=== PATIENT | male | born 1945 | race Caucasian/White ===

== ENCOUNTER 2018-10-29 17:06 | Emergency (ER) | payer MEDICARE, OTHER ==
--- NOTE | 2018-10-29 18:05 | EDM.PDOC ---
<India Oliva - Last Filed: 10/29/18 18:39> ED HPI GENERAL MEDICAL PROBLEM - General Chief Complaint: Neuro Symptoms/Deficits Stated Complaint: SHAKINESS,WEAKNESS,NAUSEA Time Seen by Provider: 10/29/18 18:00 Source of Information: Reports: Patient, Family - History of Present Illness INITIAL COMMENTS - FREE TEXT/NARRATIVE: pt was out for a drive and when they stopped he went to the [place] and he became very shakey and felt like he was going to pass out. He was very shakey but he did not actually feel like he had a fever. pt had been fine earlier in the day. He did not vomit. He seemed somewhat foggy and did feel like he could pass out Onset: Today, Sudden Duration: Hour(s): Location: Reports: Generalized - Related Data Allergies Allergy/AdvReac Type Severity Reaction Status Date / Time No Known Allergies Allergy Verified 10/29/18 17:30 Home Meds: Home Meds HCTZ/Triamterene [Maxzide 25-37.5 MG] 1 tab PO DAILY 06/27/13 [History] Allopurinol [Zyloprim] 100 mg PO DAILY 10/29/18 [History] Gabapentin [Neurontin] 300 mg PO BEDTIME 10/29/18 [History] atorvaSTATin [Lipitor] 10 mg PO BEDTIME 10/29/18 [History] Past Medical History HEENT History: Reports: Impaired Vision Cardiovascular History: Reports: High Cholesterol, Hypertension Respiratory History: Reports: Sleep Apnea Other Respiratory History: cpap does not use Gastrointestinal History: Reports: None Musculoskeletal History: Reports: Gout - Infectious Disease History Infectious Disease History: Reports: Chicken Pox, Measles, Mumps, Other (See Below) Other Infectious Disease History: Polio - Past Surgical History Head Surgeries/Procedures: Reports: None HEENT Surgical History: Reports: None Cardiovascular Surgical History: Reports: None Respiratory Surgical History: Reports: None Musculoskeletal Surgical History: Reports: None Dermatological Surgical History: Reports: None Social & Family History - Tobacco Use Smoking Status *Q: Never Smoker Second Hand Smoke Exposure: No - Caffeine Use Caffeine Use: Reports: Coffee - Recreational Drug Use Recreational Drug Use: No ED ROS GENERAL - Review of Systems Review Of Systems: See Below Constitutional: Reports: Fever, Chills, Malaise, Weakness HEENT: Reports: No Symptoms Respiratory: Reports: No Symptoms Cardiovascular: Reports: No Symptoms Endocrine: Reports: No Symptoms GI/Abdominal: Reports: No Symptoms : Reports: No Symptoms Musculoskeletal: Reports: No Symptoms Skin: Reports: No Symptoms Neurological: Reports: Dizziness, Weakness, Other (pt seemed somewhat vague. ) Psychiatric: Reports: Anxiety ED EXAM, NEURO - Physical Exam Exam: See Below Text/Narrative:: pt arrived with shaking that came on suddenly. By the time he got here he was feeling better. His temp was 101 or greater. Exam Limited By: No Limitations General Appearance: Alert, Anxious, Moderate Distress, Other (pupils equal and reactive. ) Ears: Normal TMs Nose: Normal Inspection Throat/Mouth: Normal Inspection Head Exam: Atraumatic Neck: Normal Inspection Respiratory/Chest: No Respiratory Distress Cardiovascular: Regular Rate, Rhythm, Tachycardia GI/Abdominal: Soft, Non-Tender (Male) Exam: Deferred Rectal (Males) Exam: Deferred Neurological: Alert, Oriented x 3 Back Exam: Normal Inspection Extremities: Normal Inspection Psychiatric: Normal Affect Course - Vital Signs Last Recorded V/S: Last Vital Signs Temp 101.5 F H 10/29/18 17:39 Pulse 101 H 10/29/18 18:55 Resp 30 H 10/29/18 18:55 BP 118/60 10/29/18 18:55 Pulse Ox 95 10/29/18 18:55 - Orders/Labs/Meds Orders: Active Orders 24 hr Category Date Time Status EKG Documentation Completion [RC] ASDIRECTED Care 10/29/18 17:58 Active CULTURE BLOOD [BC] Urgent Lab 10/29/18 17:55 Received CULTURE BLOOD [BC] Urgent Lab 10/29/18 18:00 Received CULTURE STREP A CONFIRMATION [RM] Routine Lab 10/29/18 19:02 Results STREP SCRN A RAPID W CULT CONF [RM] Routine Lab 10/29/18 19:02 Results Blood Culture x2 Reflex Set [OM.PC] Urgent Oth 10/29/18 18:05 Ordered EKG 12 Lead [EK] Routine Ther 10/29/18 17:58 Ordered Labs: Laboratory Tests 10/29/18 10/29/18 10/29/18 Range/Units 17:55 17:55 17:55 WBC 11.6 H (4.5-11.0) K/uL RBC 4.60 (4.30-5.90) M/uL Hgb 14.3 (12.0-15.0) g/dL Hct 41.6 (40.0-54.0) % MCV 90 (80-98) fL MCH 31 (27-31) pg MCHC 34 (32-36) % Plt Count 232 (150-400) K/uL Neut % (Auto) 88 H (36-66) % Lymph % (Auto) 2 L (24-44) % Dixon % (Auto) 8 H (2-6) % Eos % (Auto) 1 L (2-4) % Baso % (Auto) 0 (0-1) % Sodium 140 (140-148) mmol/L Potassium 3.6 (3.6-5.2) mmol/L Chloride 103 (100-108) mmol/L Carbon Dioxide 27 (21-32) mmol/L Anion Gap 10.2 (5.0-14.0) mmol/L BUN 26 H (7-18) mg/dL Creatinine 2.0 H (0.8-1.3) mg/dL Est Cr Clr Drug Dosing TNP Estimated GFR (MDRD) 33 L (>60) Glucose 229 H (74-106) mg/dL Lactic Acid (0.4-2.0) mmol/L Calcium 8.6 (8.5-10.1) mg/dL Total Bilirubin 1.0 (0.2-1.0) mg/dL AST 27 (15-37) U/L ALT 29 (12-78) U/L Alkaline Phosphatase 50 (46-116) U/L Troponin I 0.021 (0.000-0.056) ng/mL Total Protein 6.9 (6.4-8.2) g/dL Albumin 3.5 (3.4-5.0) g/dL Globulin 3.4 (2.3-3.5) g/dL Albumin/Globulin Ratio 1.0 L (1.2-2.2) Urine Color (YELLOW) Urine Appearance (CLEAR) Urine pH (5.0-8.0) Ur Specific [place] (1.008-1.030) Urine Protein (NEGATIVE) mg/dL Urine Glucose (UA) (NEGATIVE) mg/dL Urine Ketones (NEGATIVE) mg/dL Urine Occult Blood (NEGATIVE) Urine Nitrite (NEGATIVE) Urine Bilirubin (NEGATIVE) Urine Urobilinogen (0.2-1.0) EU/dL Ur Leukocyte Esterase (NEGATIVE) Urine RBC (0-5) Urine WBC (0-5) Ur Epithelial Cells Amorphous Sediment Urine Bacteria Urine Mucus 10/29/18 10/29/18 Range/Units 18:10 18:34 WBC (4.5-11.0) K/uL RBC (4.30-5.90) M/uL Hgb (12.0-15.0) g/dL Hct (40.0-54.0) % MCV (80-98) fL MCH (27-31) pg MCHC (32-36) % Plt Count (150-400) K/uL Neut % (Auto) (36-66) % Lymph % (Auto) (24-44) % Dixon % (Auto) (2-6) % Eos % (Auto) (2-4) % Baso % (Auto) (0-1) % Sodium (140-148) mmol/L Potassium (3.6-5.2) mmol/L Chloride (100-108) mmol/L Carbon Dioxide (21-32) mmol/L Anion Gap (5.0-14.0) mmol/L BUN (7-18) mg/dL Creatinine (0.8-1.3) mg/dL Est Cr Clr Drug Dosing Estimated GFR (MDRD) (>60) Glucose (74-106) mg/dL Lactic Acid 2.5 H (0.4-2.0) mmol/L Calcium (8.5-10.1) mg/dL Total Bilirubin (0.2-1.0) mg/dL AST (15-37) U/L ALT (12-78) U/L Alkaline Phosphatase (46-116) U/L Troponin I (0.000-0.056) ng/mL Total Protein (6.4-8.2) g/dL Albumin (3.4-5.0) g/dL Globulin (2.3-3.5) g/dL Albumin/Globulin Ratio (1.2-2.2) Urine Color Yellow (YELLOW) Urine Appearance Clear (CLEAR) Urine pH 6.0 (5.0-8.0) Ur Specific [place] 1.020 (1.008-1.030) Urine Protein Negative (NEGATIVE) mg/dL Urine Glucose (UA) 100 H (NEGATIVE) mg/dL Urine Ketones Negative (NEGATIVE) mg/dL Urine Occult Blood Negative (NEGATIVE) Urine Nitrite Negative (NEGATIVE) Urine Bilirubin Negative (NEGATIVE) Urine Urobilinogen 1.0 (0.2-1.0) EU/dL Ur Leukocyte Esterase Negative (NEGATIVE) Urine RBC 0-5 (0-5) Urine WBC 0-5 (0-5) Ur Epithelial Cells Rare Amorphous Sediment Not seen Urine Bacteria Not seen Urine Mucus Not seen Meds: Medications Discontinued Medications Generic Name Dose Route Start Last Admin Trade Name Ever PRN Reason Stop Dose Admin Acetaminophen 650 mg 10/29/18 18:06 10/29/18 18:19 Tylenol PO 10/29/18 18:07 650 mg ONETIME ONE Administration Sodium Chloride 1,000 mls @ 999 mls/hr 10/29/18 18:15 10/29/18 18:15 Normal Saline IV 999 mls/hr ASDIRECTED DANISHA Administration Sodium Chloride 1,000 mls @ 999 mls/hr 10/29/18 18:45 Normal Saline IV ASDIRECTED DANISHA Departure - Departure Disposition: Home, Self-Care 01 Clinical Impression: Viral syndrome Fever Qualifiers: Fever type: unspecified Qualified Code(s): R50.9 - Fever, unspecified - Discharge Information Instructions: Fever, Adult Referrals: Real Campuzano MD [Primary Care Provider] - Forms: ED Department Discharge Care Plan Goals: Rest, fluids, and increase activity as tolerated. Continue cold medications if needed, and return anytime if worsening such as difficulty breathing or serious weakness or other concerns. - My Orders Last 24 Hours: My Active Orders 10/29/18 19:02 CULTURE STREP A CONFIRMATION [RM] Routine STREP SCRN A RAPID W CULT CONF [RM] Routine - Assessment/Plan Last 24 Hours: My Active Orders 10/29/18 19:02 CULTURE STREP A CONFIRMATION [RM] Routine STREP SCRN A RAPID W CULT CONF [RM] Routine <Vincenzo Yates - Last Filed: 10/29/18 21:19> Course - Re-Assessments/Exams Free Text/Narrative Re-Assessment/Exam: 10/29/18 19:04 Patient care accepted from Dr. Oliva, labs so far generally reassuring. Urine is negative. He did admit he was developing a sore throat yesterday and a cold, took some throat lozenges. A rapid strep was obtained. 10/29/18 19:47 Rapid strep was negative, chest x-ray was normal. Patient felt stronger and was able to ambulate without difficulty. Temperature normalized. He is likely is in the early stages of a viral syndrome and will be discharged. He can return if worsening. We will also watch the results of the blood cultures and inform him immediately if a positive result is obtained. Departure - Departure Time of Disposition: 20:50
[2018-10-29] MEDS ORDERED: Acetaminophen Soln 650 MG/20.3 ML UD Cup PO ONE (18:06)
[2018-10-29] MEDS ORDERED: Sodium Chloride 0.9% 1,000 ML IV SCH ×2 (18:15→18:45)
--- NOTE | 2018-10-29 19:45 | CRLCR ---
INDICATION: Fever TECHNIQUE: Chest radiograph 2 views COMPARISON: None FINDINGS: Mediastinum: The mediastinum is normal in appearance. Mild cardiomegaly is present. Lung: Both lungs are unremarkable in appearance. No sign of pleural effusion seen. No pneumothorax is identified. Bone and Soft tissue: Unremarkable for age. IMPRESSION: 1. Mild cardiomegaly is present. Dictated by Mina Mata MD @ 10/29/2018 7:43:01 PM Dictated by: Mina Mata MD @ 10/29/2018 19:43:04 (Electronically Signed)
== END 2018-10-29 20:00 | disposition home or self-care (01) ==
LOC: JP.ED 17:06
DX: R50.9 Fever, unspecified (principal); B34.9 Viral infection, unspecified; I10 Essential (primary) hypertension; E78.00 Pure hypercholesterolemia, unspecified; M10.9 Gout, unspecified; Z79.899 Other long term (current) drug therapy
CPT/HCPCS: 36415; 71046; 80053; 81001; 83605; 84484; 85025; 87040; 87081; 87804; 87880; 93005; 96360; 99285; A9270; J7030; 99282

== ENCOUNTER 2018-11-20 11:32 | Emergency (ER) | payer MEDICARE ==
[2018-11-20] MEDS ORDERED: Ketorolac 30 MG/ML SDV IM ONE (11:55)
--- NOTE | 2018-11-20 11:57 | EDM.PDOC ---
ED HPI GENERAL MEDICAL PROBLEM - General Chief Complaint: Upper Extremity Injury/Pain Stated Complaint: POSSIBLE BROKEN R WRIST Time Seen by Provider: 11/20/18 11:53 Source of Information: Reports: Patient, Family, RN Notes Reviewed History Limitations: Reports: No Limitations - History of Present Illness INITIAL COMMENTS - FREE TEXT/NARRATIVE: 72-year-old gentleman presents emergency department today with pain in his right wrist he injured himself using a tool at home 3 days prior he's now had pain and swelling over the right wrist full range of motion of all his digits Right Wrist Pain Score (Numeric/FACES): 9 - Related Data Allergies Allergy/AdvReac Type Severity Reaction Status Date / Time No Known Allergies Allergy Verified 11/20/18 11:48 Home Meds: Home Meds HCTZ/Triamterene [Maxzide 25-37.5 MG] 1 tab PO DAILY 06/27/13 [History] Allopurinol [Zyloprim] 100 mg PO DAILY 10/29/18 [History] Gabapentin [Neurontin] 300 mg PO BEDTIME 10/29/18 [History] atorvaSTATin [Lipitor] 10 mg PO BEDTIME 10/29/18 [History] Past Medical History HEENT History: Reports: Impaired Vision Cardiovascular History: Reports: High Cholesterol, Hypertension Respiratory History: Reports: Sleep Apnea Other Respiratory History: cpap does not use Musculoskeletal History: Reports: Gout - Infectious Disease History Infectious Disease History: Reports: Chicken Pox, Measles, Mumps, Other (See Below) Other Infectious Disease History: Polio - Past Surgical History Head Surgeries/Procedures: Reports: None HEENT Surgical History: Reports: None Cardiovascular Surgical History: Reports: None Respiratory Surgical History: Reports: None Musculoskeletal Surgical History: Reports: None Dermatological Surgical History: Reports: None Social & Family History - Tobacco Use Smoking Status *Q: Never Smoker - Caffeine Use Caffeine Use: Reports: Coffee Review of Systems - Review of Systems Review Of Systems: See Below Constitutional: Reports: No Symptoms Musculoskeletal: Reports: Joint Pain (Right wrist pain) ED EXAM, GENERAL - Physical Exam Exam: See Below Free Text/Narrative:: Examination of the right wrist I do appreciate some edema slight amount of erythema over the dorsal aspect of the wrist he is tender with flexion and extension of the wrist radial pulses +2 full range of motion of all digits Course - Vital Signs Last Recorded V/S: Last Vital Signs Temp 96.5 F 11/20/18 11:51 Pulse 88 11/20/18 11:51 Resp 14 11/20/18 11:51 BP 133/81 11/20/18 11:51 Pulse Ox 94 L 11/20/18 11:51 - Orders/Labs/Meds Meds: Medications Discontinued Medications Generic Name Dose Route Start Last Admin Trade Name Ever PRN Reason Stop Dose Admin Ketorolac Tromethamine 30 mg 11/20/18 11:55 11/20/18 12:33 Toradol IM 11/20/18 11:56 30 mg ONETIME ONE Administration Departure - Departure Time of Disposition: 12:35 Disposition: Home, Self-Care 01 Condition: Fair Clinical Impression: Sprain of wrist, right Qualifiers: Encounter type: initial encounter Qualified Code(s): S63.501A - Unspecified sprain of right wrist, initial encounter - Discharge Information Instructions: Wrist Sprain, Adult Referrals: Real Campuzano MD [Primary Care Provider] - Forms: ED Department Discharge Additional Instructions: use NSAIDs for pain, Please followup with your primary care provider in 3-5 days if not better, please call return to the emergency department with worsening of symptoms. - Assessment/Plan Plan: Assessment Acuity = acute Site and laterality = right wrist strain Etiology = secondary to repetitive motion injury Manifestations = none Location of injury = Home Lab values = x-ray reveals no fracture only soft tissue swelling Plan He had some relief from Toradol injection provided in the ED, wrist splint was provided he will continue use anti-inflammatories as needed for pain follow-up primary care 3-5 days if not better This note was dictated using NextInput voice recognition software please call with any questions on syntax or grammar.
--- NOTE | 2018-11-20 12:28 | CRLCR ---
INDICATION: Pain, twisting injury COMPARISON: None. FINDINGS: Three views of the right wrist demonstrate normal alignment. No fracture or dislocation. Mild to moderate degenerative changes of the 1st CMC and triscaphe joints. 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 Mild diffuse soft tissue swelling. - IMPRESSION 1. No acute osseous abnormality. 2. Senescent changes, as above. Dictated by Torito Don MD @ 11/20/2018 12:26:16 PM Dictated by: Torito Don MD @ 11/20/2018 12:26:30 (Electronically Signed)
== END 2018-11-20 12:51 | disposition home or self-care (01) ==
LOC: JP.ED 11:32
DX: S63.501A Unspecified sprain of right wrist, initial encounter (principal); I10 Essential (primary) hypertension; E78.00 Pure hypercholesterolemia, unspecified; Z79.899 Other long term (current) drug therapy; X58.XXXA Exposure to other specified factors, initial encounter; Y93.89 Activity, other specified
CPT/HCPCS: 73110; 96372; 99283; J1885

== ENCOUNTER 2022-08-12 07:48 | Emergency (ER) | payer MEDICARE ==
[2022-08-12] MEDS ORDERED: Acetaminophen 500 MG Tab PO ONE (08:31)
[2022-08-12] MEDS ORDERED: Sodium Chloride 0.9% 10 ML Syringe FLUSH PRN (08:31)
[2022-08-12] MEDS ORDERED: Sodium Chloride 0.9% 500 ML IV ONE (08:38)
[2022-08-12 08:50] LABS: BASOPHILS ABSOLUTE AUTO 0.03 K/uL (0.00-0.10); BASOPHILS PERCENT AUTO 0.5 % (0.1-1.3); HEMATOCRIT 41.2 % (38.4-49.7); HEMOGLOBIN 14.6 g/dL (12.9-16.9); IMMATURE GRAN ABSOLUTE AUTO 0.03 K/uL (0.00-0.23); IMMATURE GRAN PERCENT AUTO 0.5 % (0.0-0.7); LYMPHOCYTES ABSOLUTE AUTO 0.45 K/uL (0.8-3.3); LYMPHOCYTES PERCENT AUTO 7.4 % (11.4-47.7); MEAN CORPUSCULAR HEMOGLOBIN 32.1 pg (31.6-35.5); MEAN CORPUSCULAR HGB CONC 35.4 g/dL (31.6-35.5); MEAN CORPUSCULAR VOLUME 90.5 fL (81.4-99.0); MONOCYTES ABSOLUTE AUTO 0.56 K/uL (0.20-0.90); MONOCYTES PERCENT AUTO 9.3 % (3.3-12.6); NEUTROPHILS ABSOLUTE AUTO 4.98 K/uL (1.0-7.6); NEUTROPHILS PERCENT AUTO 82.3 % (40.0-78.1); PLATELET COUNT,PLT 134 K/uL (130-375); RED BLOOD CELL COUNT 4.55 M/uL (4.14-5.76); WHITE BLOOD CELL COUNT,WBC 6.1 K/uL (3.2-11.0)
[2022-08-12 09:10] LABS: A/G RATIO 0.9 (1.2-2.2); ALANINE AMINOTRANSFERASE,ALT 26 U/L (12-78); ALBUMIN 3.1 g/dL (3.4-5.0); ALKALINE PHOSPHATASE 40 U/L (46-116); ASPARTATE AMNIOTRANSFERASE,AST 30 U/L (15-37); BILIRUBIN TOTAL 1.9 mg/dL (0.2-1.0); BLOOD UREA NITROGEN,BUN 15 mg/dL (7-18); C-REACTIVE PROTEIN 4.47 mg/dL (0.0-0.3); CALCIUM 8.1 mg/dL (8.5-10.1); CARBON DIOXIDE,CO2 25 mmol/L (21-32); CHLORIDE,CL 100 mmol/L (100-108); CREATININE 1.6 mg/dL (0.8-1.3); EST CRCL DRUG DOSING (CG) 40.56 mL/min; ESTIMATED GFR 44 mL/min (>60); GLUCOSE RANDOM 156 mg/dL (74-106); POTASSIUM,K 3.7 mmol/L (3.6-5.2); PROTEIN TOTAL,TP 6.5 g/dL (6.4-8.2); SODIUM,NA 134 mmol/L (140-148)
[2022-08-12 09:12] LABS: ANION GAP 12.7 mmol/L (5.0-14.0)
[2022-08-12 09:13] LABS: MAGNESIUM 1.5 mg/dL (1.8-2.4); PHOSPHORUS 2.5 mg/dL (2.5-4.9)
[2022-08-12 09:16] LABS: LACTIC ACID 1.1 mmol/L (0.4-2.0)
[2022-08-12 09:39] LABS: LYME AB IgG Negative (Negative); LYME AB IgM Equivocal (Negative)
[2022-08-12] MEDS ORDERED: Doxycycline 100 MG Cap PO ONE (10:07)
[2022-08-12] MEDS ORDERED: Magnesium Oxide 400 MG Tab PO ONE (10:14)
[2022-08-14 23:07] LABS: IGG P18 AB. Absent (.); IGG P23 AB. Absent (.); IGG P28 AB. Absent (.); IGG P30 AB. Absent (.); IGG P39 AB. Present (.); IGG P41 AB. Present (.); IGG P45 AB. Absent (.); IGG P58 AB. Present (.); IGG P66 AB. Absent (.); IGG P93 AB. Absent (.); IGM P23 AB. Absent (.); IGM P39 AB. Absent (.); IGM P41 AB. Absent (.); LYME IGG LB INTERP. Negative (.); LYME IGM LB INTERP. Negative (.)
== END 2022-08-12 10:45 | disposition home or self-care (01) ==
LOC: JP.ED 07:48
DX: A69.20 Lyme disease, unspecified (principal); E83.42 Hypomagnesemia; I12.9 Hypertensive chronic kidney disease with stage 1 through stage 4 chronic kidney disease, or unspecified chronic kidney disease; N18.32 Chronic kidney disease, stage 3b; E78.00 Pure hypercholesterolemia, unspecified; Z79.899 Other long term (current) drug therapy
CPT/HCPCS: 36415; 80053; 83605; 83735; 84100; 84145; 85025; 86140; 86617; 86618; 93005; 96360; 99285; A9270; J3490; J7040

== ENCOUNTER 2022-10-07 16:15 | Inpatient (IN) | payer MEDICARE ==
[2022-10-07] MEDS ORDERED: Acetaminophen 325 MG Tab PO PRN (16:17)
[2022-10-07] MEDS ORDERED: Sodium Chloride 0.9% 10 ML Syringe FLUSH PRN (16:17)
[2022-10-07] MEDS ORDERED: Albuterol 0.083% 2.5 MG/3 ML Neb Soln NEB PRN (16:17)
[2022-10-07] MEDS ORDERED: Ondansetron 4 MG/2 ML SDV IV PRN (16:17)
[2022-10-07] MEDS ORDERED: Naloxone 0.4 MG/ML SDV IVPUSH PRN (16:22)
[2022-10-07] MEDS ORDERED: HYDROmorphone 0.5 MG/0.5 ML Syringe IVPUSH PRN (16:22)
[2022-10-07 16:37] LABS: BASOPHILS ABSOLUTE AUTO 0.04 K/uL (0.00-0.10); BASOPHILS PERCENT AUTO 0.4 % (0.1-1.3); EOSINOPHILS ABSOLUTE AUTO 0.22 K/uL (0.00-0.40); EOSINOPHILS PERCENT AUTO 2.1 % (0.0-5.4); HEMATOCRIT 39.7 % (38.4-49.7); IMMATURE GRAN ABSOLUTE AUTO 0.05 K/uL (0.00-0.23); IMMATURE GRAN PERCENT AUTO 0.5 % (0.0-0.7); LYMPHOCYTES ABSOLUTE AUTO 1.68 K/uL (0.8-3.3); LYMPHOCYTES PERCENT AUTO 15.7 % (11.4-47.7); MEAN CORPUSCULAR HEMOGLOBIN 32.1 pg (31.6-35.5); MEAN CORPUSCULAR HGB CONC 35.3 g/dL (31.6-35.5); MEAN CORPUSCULAR VOLUME 91.1 fL (81.4-99.0); MONOCYTES ABSOLUTE AUTO 1.35 K/uL (0.20-0.90); MONOCYTES PERCENT AUTO 12.7 % (3.3-12.6); NEUTROPHILS ABSOLUTE AUTO 7.33 K/uL (1.0-7.6); NEUTROPHILS PERCENT AUTO 68.6 % (40.0-78.1); PLATELET COUNT,PLT 236 K/uL (130-375); RED BLOOD CELL COUNT 4.36 M/uL (4.14-5.76); WHITE BLOOD CELL COUNT,WBC 10.7 K/uL (3.2-11.0)
[2022-10-07 16:57] LABS: A/G RATIO 0.7 (1.2-2.2); ALANINE AMINOTRANSFERASE,ALT 19 U/L (12-78); ALBUMIN 2.9 g/dL (3.4-5.0); ALKALINE PHOSPHATASE 48 U/L (46-116); ASPARTATE AMNIOTRANSFERASE,AST 20 U/L (15-37); BILIRUBIN TOTAL 1.7 mg/dL (0.2-1.0); BLOOD UREA NITROGEN,BUN 13 mg/dL (7-18); CARBON DIOXIDE,CO2 28 mmol/L (21-32); CHLORIDE,CL 100 mmol/L (100-108); CREATININE 1.4 mg/dL (0.8-1.3); ESTIMATED GFR 52 mL/min (>60); GLUCOSE RANDOM 128 mg/dL (74-106); POTASSIUM,K 3.6 mmol/L (3.6-5.2); SODIUM,NA 138 mmol/L (140-148)
[2022-10-07] MEDS: Sodium Chloride 0.9% 1,000 ML IV SCH (17:06)
[2022-10-07 17:08] LABS: ANION GAP 13.6 mmol/L (5.0-14.0)
[2022-10-07] MEDS: Ampicillin/Sulbactam Na 1.5 GM in Sodium Chloride 0.9% 50 ML IV SCH ×2 (17:24→22:30)
[2022-10-07] MEDS: atorvaSTATin 10 MG Tab PO SCH (20:51)
[2022-10-07] MEDS: Gabapentin 300 MG Cap PO SCH (20:51)
[2022-10-07] MEDS ORDERED: Metoprolol Tartrate 50 MG Tab PO SCH (22:15)
[2022-10-08] MEDS: Sodium Chloride 0.9% 1,000 ML IV SCH ×3 (02:01→19:37)
[2022-10-08] MEDS: Ampicillin/Sulbactam Na 1.5 GM in Sodium Chloride 0.9% 50 ML IV SCH ×4 (04:52→22:58)
[2022-10-08] MEDS: Metoprolol Tartrate 50 MG, Metoprolol Tartrate 25 MG PO SCH ×4 (08:09→21:15)
[2022-10-08] MEDS: Allopurinol 100 MG Tab PO SCH (08:09)
[2022-10-08] MEDS: atorvaSTATin 10 MG Tab PO SCH (21:14)
[2022-10-08] MEDS: Gabapentin 300 MG Cap PO SCH (21:14)
[2022-10-09] MEDS: Sodium Chloride 0.9% 1,000 ML IV SCH (03:54)
[2022-10-09 04:26] LABS: HEMATOCRIT 34.1 % (38.4-49.7); HEMOGLOBIN 11.9 g/dL (12.9-16.9); MEAN CORPUSCULAR HEMOGLOBIN 31.6 pg (31.6-35.5); MEAN CORPUSCULAR HGB CONC 34.9 g/dL (31.6-35.5); MEAN CORPUSCULAR VOLUME 90.5 fL (81.4-99.0); RED BLOOD CELL COUNT 3.77 M/uL (4.14-5.76); WHITE BLOOD CELL COUNT,WBC 9.3 K/uL (3.2-11.0)
[2022-10-09 05:02] LABS: A/G RATIO 0.7 (1.2-2.2); ALANINE AMINOTRANSFERASE,ALT 21 U/L (12-78); ALBUMIN 2.2 g/dL (3.4-5.0); ALKALINE PHOSPHATASE 37 U/L (46-116); ASPARTATE AMNIOTRANSFERASE,AST 17 U/L (15-37); BILIRUBIN TOTAL 1.3 mg/dL (0.2-1.0); BLOOD UREA NITROGEN,BUN 9 mg/dL (7-18); CALCIUM 7.3 mg/dL (8.5-10.1); CARBON DIOXIDE,CO2 26 mmol/L (21-32); CHLORIDE,CL 107 mmol/L (100-108); CREATININE 1.3 mg/dL (0.8-1.3); EST CRCL DRUG DOSING (CG) 49.91 mL/min; ESTIMATED GFR 57 mL/min (>60); GLUCOSE RANDOM 100 mg/dL (74-106); MAGNESIUM 1.6 mg/dL (1.8-2.4); PHOSPHORUS 2.5 mg/dL (2.5-4.9); POTASSIUM,K 3.5 mmol/L (3.6-5.2); PRO B-TYPE NATRIUR PEPT,BNPPRO 525 pg/mL (5-450); PROTEIN TOTAL,TP 5.5 g/dL (6.4-8.2); SODIUM,NA 140 mmol/L (140-148)
[2022-10-09 05:06] LABS: ANION GAP 10.5 mmol/L (5.0-14.0)
[2022-10-09] MEDS: Ampicillin/Sulbactam Na 1.5 GM in Sodium Chloride 0.9% 50 ML IV SCH ×2 (05:40→11:15)
[2022-10-09] MEDS ORDERED: Dexamethasone 4 MG/ML SDV ONE (08:15)
[2022-10-09] MEDS ORDERED: Propofol 200 MG/20 ML SDV ONE (08:15)
[2022-10-09] MEDS ORDERED: Rocuronium 50 MG/5 ML Vial ONE (08:15)
[2022-10-09] MEDS ORDERED: Glycopyrrolate 0.2 MG/ML 5 ML MDV ONE (08:15)
[2022-10-09] MEDS ORDERED: Ondansetron 4 MG/2 ML SDV ONE (08:15)
[2022-10-09] MEDS ORDERED: Succinylcholine 200 MG/10 ML MDV ONE (08:15)
[2022-10-09] MEDS ORDERED: Neostigmine Methylsulfate 1 MG/ML 5 ML Syringe ONE (08:15)
[2022-10-09] MEDS ORDERED: fentaNYL 250 MCG/5 ML SDV ONE ×2 (08:18→13:21)
[2022-10-09] MEDS: Metoprolol Tartrate 50 MG, Metoprolol Tartrate 25 MG PO SCH ×2 (08:49)
[2022-10-09] MEDS ORDERED: Ropivacaine 44 ML, dexAMETHasone 8 MG, EPINEPHrine 0.4 MG, Sodium Chloride 0.9% 33.6 ML NERVRT SCH ×4 (10:00)
[2022-10-09] MEDS ORDERED: Ketamine 500 MG/5 ML MDV IV SCH ×3 (10:00)
[2022-10-09] MEDS ORDERED: Ketamine 21 MG in Sodium Chloride 0.9% 19.79 ML IV SCH (10:00)
[2022-10-09] MEDS ORDERED: Potassium Phosphates 3 mMole/ML 15 ML SDV IV ONE (10:18)
[2022-10-09] MEDS ORDERED: diphenhydrAMINE 25 MG Cap PO PRN (11:33)
[2022-10-09] MEDS ORDERED: Naloxone 0.4 MG/ML SDV IVPUSH PRN (11:33)
[2022-10-09] MEDS ORDERED: Ondansetron 4 MG/2 ML SDV IVPUSH PRN ×2 (11:33→16:00)
[2022-10-09] MEDS ORDERED: diphenhydrAMINE 50 MG/ML SDV IVPUSH PRN ×2 (11:33→16:00)
[2022-10-09] MEDS ORDERED: Meropenem 500 MG SDV ONE (11:41)
[2022-10-09] MEDS ORDERED: Lidocaine 1% with EPINEPHrine 1:100,000 50 ML MDV ONE (11:41)
[2022-10-09] MEDS ORDERED: Bupivacaine 0.5% 50 ML MDV ONE (11:41)
[2022-10-09] MEDS ORDERED: Potassium Phos in 0.9 % NaCl 15 MMOL in Premix Bag 1 BAG IV SCH ×2 (12:00)
[2022-10-09] MEDS: HYDROmorphone/Normal Saline 6 MG/30 ML PCA Vial IV PRN (13:43)
[2022-10-09] MEDS ORDERED: Sugammadex Sodium 200 MG/2 ML VIAL ONE (13:45)
[2022-10-09] MEDS ORDERED: Cyclobenzaprine 10 MG Tab PO PRN (15:56)
[2022-10-09] MEDS: Allopurinol 100 MG Tab PO SCH (15:57)
[2022-10-09] MEDS ORDERED: Metoclopramide 10 MG/2 ML SDV IVPUSH PRN (16:00)
[2022-10-09] MEDS ORDERED: hydrOXYzine HCL 100 MG/2 ML SDV IM PRN (16:00)
[2022-10-09] MEDS ORDERED: Labetalol 20 MG/4 ML Syringe IVPUSH PRN (16:00)
[2022-10-09] MEDS ORDERED: Dextrose 5%-Lactated Ringers 1,000 ML IV SCH (16:00)
[2022-10-09] MEDS ORDERED: Acetaminophen 500 MG Tab PO PRN (16:00)
[2022-10-09] MEDS ORDERED: MVI, Adult with Vitamin K 10 ML, Thiamine 200 MG, Zinc/Copper/Manganese/Selenium 1 ML i... IV SCH ×4 (16:00)
[2022-10-09] MEDS: Potassium Phos in 0.9 % NaCl 15 MMOL in Premix Bag 1 BAG IV SCH ×6 (16:01→22:35)
[2022-10-09] MEDS: Pantoprazole 40 MG Vial IVPUSH SCH (17:25)
[2022-10-09] MEDS: cefOXitin 2 GM in Sodium Chloride 0.9% 50 ML IV SCH (19:19)
[2022-10-10] MEDS: cefOXitin 2 GM in Sodium Chloride 0.9% 50 ML IV SCH ×4 (00:31→17:58)
[2022-10-10 04:17] LABS: BASOPHILS PERCENT AUTO 0.1 % (0.1-1.3); HEMATOCRIT 35.6 % (38.4-49.7); HEMOGLOBIN 12.6 g/dL (12.9-16.9); IMMATURE GRAN PERCENT AUTO 0.6 % (0.0-0.7); LYMPHOCYTES ABSOLUTE AUTO 0.84 K/uL (0.8-3.3); LYMPHOCYTES PERCENT AUTO 5.2 % (11.4-47.7); MEAN CORPUSCULAR HGB CONC 35.4 g/dL (31.6-35.5); MEAN CORPUSCULAR VOLUME 90.4 fL (81.4-99.0); MONOCYTES ABSOLUTE AUTO 0.86 K/uL (0.20-0.90); MONOCYTES PERCENT AUTO 5.3 % (3.3-12.6); NEUTROPHILS ABSOLUTE AUTO 14.27 K/uL (1.0-7.6); NEUTROPHILS PERCENT AUTO 88.8 % (40.0-78.1); PLATELET COUNT,PLT 245 K/uL (130-375); RED BLOOD CELL COUNT 3.94 M/uL (4.14-5.76); WHITE BLOOD CELL COUNT,WBC 16.1 K/uL (3.2-11.0)
[2022-10-10 04:49] LABS: A/G RATIO 0.6 (1.2-2.2); ALANINE AMINOTRANSFERASE,ALT 21 U/L (12-78); ALBUMIN 2.1 g/dL (3.4-5.0); ALKALINE PHOSPHATASE 36 U/L (46-116); ASPARTATE AMNIOTRANSFERASE,AST 18 U/L (15-37); BILIRUBIN TOTAL 0.7 mg/dL (0.2-1.0); BLOOD UREA NITROGEN,BUN 11 mg/dL (7-18); CALCIUM 7.5 mg/dL (8.5-10.1); CARBON DIOXIDE,CO2 23 mmol/L (21-32); CHLORIDE,CL 104 mmol/L (100-108); CREATININE 1.4 mg/dL (0.8-1.3); EST CRCL DRUG DOSING (CG) 46.46 mL/min; ESTIMATED GFR 52 mL/min (>60); GLUCOSE RANDOM 262 mg/dL (74-106); MAGNESIUM 1.6 mg/dL (1.8-2.4); PHOSPHORUS 3.8 mg/dL (2.5-4.9); POTASSIUM,K 4.4 mmol/L (3.6-5.2); PRO B-TYPE NATRIUR PEPT,BNPPRO 988 pg/mL (5-450); PROTEIN TOTAL,TP 5.6 g/dL (6.4-8.2); SODIUM,NA 137 mmol/L (140-148)
[2022-10-10 05:04] LABS: BASOPHILS ABSOLUTE AUTO 0.02 K/uL (0.00-0.10)
[2022-10-10 05:05] LABS: ANION GAP 14.4 mmol/L (5.0-14.0)
[2022-10-10] MEDS: HYDROmorphone/Normal Saline 6 MG/30 ML PCA Vial IV PRN (05:58)
[2022-10-10] MEDS: Tamsulosin 0.4 MG Cap.ER PO SCH ×2 (09:58→20:08)
[2022-10-10] MEDS: Metoprolol Tartrate 50 MG, Metoprolol Tartrate 25 MG PO SCH ×4 (09:58→20:08)
[2022-10-10] MEDS: Allopurinol 100 MG Tab PO SCH (09:59)
[2022-10-10] MEDS: Magnesium Sulfate/Water 2 GM in Premix Bag 1 BAG IV SCH ×3 (10:03→21:29)
[2022-10-10] MEDS ORDERED: MVI, Adult with Vitamin K 10 ML, Thiamine 200 MG, Zinc/Copper/Manganese/Selenium 1 ML i... IV SCH ×4 (16:00)
[2022-10-10] MEDS: Pantoprazole 40 MG Vial IVPUSH SCH (17:54)
[2022-10-10] MEDS ORDERED: Phenol/Sodium Phenolate Spray 180 ML Bottle MUCMEM PRN (19:02)
[2022-10-10] MEDS: Gabapentin 300 MG Cap PO SCH (20:08)
[2022-10-10] MEDS ORDERED: Acetaminophen 500 MG Tab PO PRN (22:00)
[2022-10-11] MEDS: cefOXitin 2 GM in Sodium Chloride 0.9% 50 ML IV SCH ×3 (00:53→14:42)
[2022-10-11] MEDS: Lactated Ringers 1,000 ML IV SCH ×3 (02:53→20:26)
[2022-10-11] MEDS: Magnesium Sulfate/Water 2 GM in Premix Bag 1 BAG IV SCH ×4 (03:27→22:26)
[2022-10-11 04:12] LABS: HEMATOCRIT 34.4 % (38.4-49.7); HEMOGLOBIN 11.8 g/dL (12.9-16.9); MEAN CORPUSCULAR HEMOGLOBIN 31.3 pg (31.6-35.5); MEAN CORPUSCULAR HGB CONC 34.3 g/dL (31.6-35.5); MEAN CORPUSCULAR VOLUME 91.2 fL (81.4-99.0); RED BLOOD CELL COUNT 3.77 M/uL (4.14-5.76); WHITE BLOOD CELL COUNT,WBC 19.4 K/uL (3.2-11.0)
[2022-10-11 04:46] LABS: ALANINE AMINOTRANSFERASE,ALT 33 U/L (12-78); ALBUMIN 2.2 g/dL (3.4-5.0); ALKALINE PHOSPHATASE 38 U/L (46-116); ANION GAP 5.7 mmol/L (5.0-14.0); ASPARTATE AMNIOTRANSFERASE,AST 18 U/L (15-37); BILIRUBIN TOTAL 0.6 mg/dL (0.2-1.0); BLOOD UREA NITROGEN,BUN 11 mg/dL (7-18); CALCIUM 8.1 mg/dL (8.5-10.1); CARBON DIOXIDE,CO2 27 mmol/L (21-32); CHLORIDE,CL 107 mmol/L (100-108); CREATININE 1.5 mg/dL (0.8-1.3); EST CRCL DRUG DOSING (CG) 43.37 mL/min; ESTIMATED GFR 48 mL/min (>60); GLUCOSE RANDOM 136 mg/dL (74-106); PHOSPHORUS 2.5 mg/dL (2.5-4.9); POTASSIUM,K 4.7 mmol/L (3.6-5.2); PRO B-TYPE NATRIUR PEPT,BNPPRO 511 pg/mL (5-450); PROTEIN TOTAL,TP 5.6 g/dL (6.4-8.2); SODIUM,NA 140 mmol/L (140-148)
[2022-10-11 05:23] LABS: A/G RATIO 0.7 (1.2-2.2)
[2022-10-11] MEDS ORDERED: Lidocaine 1% with EPINEPHrine 1:100,000 50 ML MDV ONE (06:44)
[2022-10-11] MEDS ORDERED: Meropenem 500 MG SDV ONE (06:44)
[2022-10-11] MEDS ORDERED: Bupivacaine 0.5% 50 ML MDV ONE (06:44)
[2022-10-11] MEDS ORDERED: fentaNYL 50 MCG/ML SDV ONE (06:50)
[2022-10-11] MEDS ORDERED: Propofol 200 MG/20 ML SDV ONE ×2 (06:50→07:52)
[2022-10-11] MEDS: Metoprolol Tartrate 50 MG, Metoprolol Tartrate 25 MG PO SCH ×6 (07:06→20:32)
[2022-10-11] MEDS: HYDROmorphone/Normal Saline 6 MG/30 ML PCA Vial IV PRN (07:26)
[2022-10-11] MEDS ORDERED: Ropivacaine 44 ML, dexAMETHasone 8 MG, EPINEPHrine 0.4 MG, Sodium Chloride 0.9% 33.6 ML NERVRT SCH ×4 (08:00)
[2022-10-11] MEDS: Tamsulosin 0.4 MG Cap.ER PO SCH ×2 (09:04→20:32)
[2022-10-11] MEDS: Allopurinol 100 MG Tab PO SCH (09:04)
[2022-10-11] MEDS: Pantoprazole 40 MG Vial IVPUSH SCH (16:27)
[2022-10-11] MEDS: Gabapentin 300 MG Cap PO SCH (20:32)
[2022-10-11] MEDS: Acetaminophen 500 MG Tab PO SCH (21:00)
[2022-10-12] MEDS: Magnesium Sulfate/Water 2 GM in Premix Bag 1 BAG IV SCH (04:01)
[2022-10-12 04:20] LABS: HEMATOCRIT 30.5 % (38.4-49.7); HEMOGLOBIN 10.7 g/dL (12.9-16.9); MEAN CORPUSCULAR HEMOGLOBIN 31.8 pg (31.6-35.5); MEAN CORPUSCULAR HGB CONC 35.1 g/dL (31.6-35.5); MEAN CORPUSCULAR VOLUME 90.5 fL (81.4-99.0); RED BLOOD CELL COUNT 3.37 M/uL (4.14-5.76); WHITE BLOOD CELL COUNT,WBC 16.1 K/uL (3.2-11.0)
[2022-10-12 04:59] LABS: A/G RATIO 0.6 (1.2-2.2); ALANINE AMINOTRANSFERASE,ALT 18 U/L (12-78); ALKALINE PHOSPHATASE 35 U/L (46-116); ANION GAP 5.1 mmol/L (5.0-14.0); ASPARTATE AMNIOTRANSFERASE,AST 19 U/L (15-37); BILIRUBIN TOTAL 0.6 mg/dL (0.2-1.0); BLOOD UREA NITROGEN,BUN 12 mg/dL (7-18); CARBON DIOXIDE,CO2 29 mmol/L (21-32); CHLORIDE,CL 107 mmol/L (100-108); CREATININE 1.3 mg/dL (0.8-1.3); EST CRCL DRUG DOSING (CG) 50.04 mL/min; ESTIMATED GFR 57 mL/min (>60); GLUCOSE RANDOM 138 mg/dL (74-106); MAGNESIUM 3.4 mg/dL (1.8-2.4); PHOSPHORUS 2.7 mg/dL (2.5-4.9); POTASSIUM,K 4.5 mmol/L (3.6-5.2); PRO B-TYPE NATRIUR PEPT,BNPPRO 1092 pg/mL (5-450); PROTEIN TOTAL,TP 5.2 g/dL (6.4-8.2); SODIUM,NA 141 mmol/L (140-148)
[2022-10-12] MEDS: Acetaminophen 500 MG Tab PO SCH ×3 (06:05→21:55)
[2022-10-12] MEDS: Lactated Ringers 1,000 ML IV SCH ×2 (06:24→18:21)
[2022-10-12] MEDS: Docusate Sodium 100 MG Cap PO SCH ×2 (08:47→21:00)
[2022-10-12] MEDS: Metoprolol Tartrate 50 MG, Metoprolol Tartrate 25 MG PO SCH ×4 (08:47→21:01)
[2022-10-12] MEDS: Bisacodyl 5 MG Tab PO SCH ×2 (08:47→21:00)
[2022-10-12] MEDS: Tamsulosin 0.4 MG Cap.ER PO SCH ×2 (08:48→21:01)
[2022-10-12] MEDS: Allopurinol 100 MG Tab PO SCH (08:48)
[2022-10-12] MEDS: Meropenem 500 MG in Sodium Chloride 0.9% 50 ML IV SCH ×3 (09:58→21:56)
[2022-10-12] MEDS: Pantoprazole 40 MG Vial IVPUSH SCH (17:33)
[2022-10-12] MEDS: Gabapentin 300 MG Cap PO SCH (21:00)
[2022-10-13] MEDS: Meropenem 500 MG in Sodium Chloride 0.9% 50 ML IV SCH ×4 (04:09→21:06)
[2022-10-13] MEDS: Acetaminophen 500 MG Tab PO SCH ×3 (05:56→21:06)
[2022-10-13] MEDS: Bisacodyl 5 MG Tab PO SCH ×2 (08:37→21:04)
[2022-10-13] MEDS: Docusate Sodium 100 MG Cap PO SCH ×2 (08:37→21:04)
[2022-10-13] MEDS: Tamsulosin 0.4 MG Cap.ER PO SCH ×2 (08:37→21:04)
[2022-10-13] MEDS: Metoprolol Tartrate 50 MG, Metoprolol Tartrate 25 MG PO SCH ×4 (08:37→21:05)
[2022-10-13] MEDS: Allopurinol 100 MG Tab PO SCH (08:37)
[2022-10-13] MEDS: Lactated Ringers 1,000 ML IV SCH ×2 (10:01→21:12)
[2022-10-13] MEDS ORDERED: Pantoprazole 40 MG Delayed-Release Granules 1 Packet PO SCH (16:30)
[2022-10-13] MEDS ORDERED: atorvaSTATin 10 MG Tab PO SCH (21:00)
[2022-10-13] MEDS: Gabapentin 300 MG Cap PO SCH (21:05)
[2022-10-13] MEDS: atorvaSTATin 10 MG Tab PO SCH (21:05)
[2022-10-14] MEDS: Meropenem 500 MG in Sodium Chloride 0.9% 50 ML IV SCH ×4 (06:14→21:25)
[2022-10-14] MEDS: Acetaminophen 500 MG Tab PO SCH ×3 (06:14→21:25)
[2022-10-14] MEDS ORDERED: traMADol 50 MG Tab PO PRN (07:32)
[2022-10-14] MEDS ORDERED: Furosemide 20 MG/2 ML VIAL IVPUSH ONE (07:45)
[2022-10-14] MEDS: Docusate Sodium 100 MG Cap PO SCH ×2 (08:16→21:25)
[2022-10-14] MEDS: Bisacodyl 5 MG Tab PO SCH ×2 (08:16→21:25)
[2022-10-14] MEDS: Metoprolol Tartrate 50 MG, Metoprolol Tartrate 25 MG PO SCH ×4 (08:17→21:25)
[2022-10-14] MEDS: Tamsulosin 0.4 MG Cap.ER PO SCH ×2 (08:17→21:28)
[2022-10-14] MEDS: Allopurinol 100 MG Tab PO SCH (08:17)
[2022-10-14] MEDS: Lactated Ringers 1,000 ML IV SCH (08:25)
[2022-10-14] MEDS: Pantoprazole 40 MG Tab.CR PO SCH (16:29)
[2022-10-14] MEDS: atorvaSTATin 10 MG Tab PO SCH (21:27)
[2022-10-14] MEDS: Gabapentin 300 MG Cap PO SCH (21:28)
[2022-10-15 04:22] LABS: HEMATOCRIT 32.4 % (38.4-49.7); HEMOGLOBIN 11.5 g/dL (12.9-16.9); MEAN CORPUSCULAR HEMOGLOBIN 31.7 pg (31.6-35.5); MEAN CORPUSCULAR HGB CONC 35.5 g/dL (31.6-35.5); MEAN CORPUSCULAR VOLUME 89.3 fL (81.4-99.0); RED BLOOD CELL COUNT 3.63 M/uL (4.14-5.76); WHITE BLOOD CELL COUNT,WBC 15.1 K/uL (3.2-11.0)
[2022-10-15 04:48] LABS: A/G RATIO 0.7 (1.2-2.2); ALANINE AMINOTRANSFERASE,ALT 16 U/L (12-78); ALBUMIN 1.9 g/dL (3.4-5.0); ALKALINE PHOSPHATASE 34 U/L (46-116); ASPARTATE AMNIOTRANSFERASE,AST 13 U/L (15-37); BILIRUBIN TOTAL 0.7 mg/dL (0.2-1.0); BLOOD UREA NITROGEN,BUN 12 mg/dL (7-18); CALCIUM 7.5 mg/dL (8.5-10.1); CARBON DIOXIDE,CO2 26 mmol/L (21-32); CHLORIDE,CL 105 mmol/L (100-108); CREATININE 1.2 mg/dL (0.8-1.3); EST CRCL DRUG DOSING (CG) 54.21 mL/min; ESTIMATED GFR 63 mL/min (>60); GLUCOSE RANDOM 136 mg/dL (74-106); MAGNESIUM 1.8 mg/dL (1.8-2.4); PHOSPHORUS 2.6 mg/dL (2.5-4.9); POTASSIUM,K 3.1 mmol/L (3.6-5.2); PRO B-TYPE NATRIUR PEPT,BNPPRO 564 pg/mL (5-450); PROTEIN TOTAL,TP 4.8 g/dL (6.4-8.2); SODIUM,NA 139 mmol/L (140-148)
[2022-10-15 04:51] LABS: ANION GAP 11.1 mmol/L (5.0-14.0)
[2022-10-15] MEDS: Acetaminophen 500 MG Tab PO SCH ×4 (05:22→22:03)
[2022-10-15] MEDS: Meropenem 500 MG in Sodium Chloride 0.9% 50 ML IV SCH ×4 (05:22→22:06)
[2022-10-15] MEDS ORDERED: Potassium Phosphates 3 mMole/ML 15 ML SDV IV ONE (07:32)
[2022-10-15] MEDS: Potassium Phos in 0.9 % NaCl 15 MMOL in Premix Bag 1 BAG IV SCH ×6 (08:07→13:54)
[2022-10-15] MEDS: Metoprolol Tartrate 50 MG, Metoprolol Tartrate 25 MG PO SCH ×4 (08:16→22:04)
[2022-10-15] MEDS: Allopurinol 100 MG Tab PO SCH (08:17)
[2022-10-15] MEDS: Tamsulosin 0.4 MG Cap.ER PO SCH ×2 (08:17→22:03)
[2022-10-15] MEDS: Pantoprazole 40 MG Tab.CR PO SCH (15:42)
[2022-10-15] MEDS: Lactobacillus Rhamnosus GG (Probiotic) Cap PO SCH (22:03)
[2022-10-15] MEDS: Gabapentin 300 MG Cap PO SCH (22:03)
[2022-10-15] MEDS: atorvaSTATin 10 MG Tab PO SCH (22:03)
[2022-10-16] MEDS: Meropenem 500 MG in Sodium Chloride 0.9% 50 ML IV SCH ×2 (04:14→09:55)
[2022-10-16 04:41] LABS: HEMATOCRIT 31.9 % (38.4-49.7); HEMOGLOBIN 11.1 g/dL (12.9-16.9); MEAN CORPUSCULAR HEMOGLOBIN 31.4 pg (31.6-35.5); MEAN CORPUSCULAR HGB CONC 34.8 g/dL (31.6-35.5); MEAN CORPUSCULAR VOLUME 90.1 fL (81.4-99.0); RED BLOOD CELL COUNT 3.54 M/uL (4.14-5.76); WHITE BLOOD CELL COUNT,WBC 12.7 K/uL (3.2-11.0)
[2022-10-16] MEDS: Acetaminophen 500 MG Tab PO SCH (05:01)
[2022-10-16 05:11] LABS: A/G RATIO 0.7 (1.2-2.2); ALANINE AMINOTRANSFERASE,ALT 17 U/L (12-78); ALKALINE PHOSPHATASE 32 U/L (46-116); ASPARTATE AMNIOTRANSFERASE,AST 17 U/L (15-37); BILIRUBIN TOTAL 0.8 mg/dL (0.2-1.0); BLOOD UREA NITROGEN,BUN 10 mg/dL (7-18); CALCIUM 7.3 mg/dL (8.5-10.1); CARBON DIOXIDE,CO2 24 mmol/L (21-32); CHLORIDE,CL 108 mmol/L (100-108); CREATININE 1.1 mg/dL (0.8-1.3); EST CRCL DRUG DOSING (CG) 59.13 mL/min; ESTIMATED GFR 70 mL/min (>60); GLUCOSE RANDOM 110 mg/dL (74-106); MAGNESIUM 1.8 mg/dL (1.8-2.4); PHOSPHORUS 3.2 mg/dL (2.5-4.9); POTASSIUM,K 3.3 mmol/L (3.6-5.2); PRO B-TYPE NATRIUR PEPT,BNPPRO 492 pg/mL (5-450); PROTEIN TOTAL,TP 4.8 g/dL (6.4-8.2); SODIUM,NA 141 mmol/L (140-148)
[2022-10-16 05:20] LABS: ANION GAP 12.3 mmol/L (5.0-14.0)
[2022-10-16] MEDS: Lactobacillus Rhamnosus GG (Probiotic) Cap PO SCH (08:20)
[2022-10-16] MEDS: Tamsulosin 0.4 MG Cap.ER PO SCH (08:21)
[2022-10-16] MEDS: Metoprolol Tartrate 50 MG, Metoprolol Tartrate 25 MG PO SCH ×2 (08:21)
[2022-10-16] MEDS: Allopurinol 100 MG Tab PO SCH (08:21)
== END 2022-10-16 10:35 | disposition home health service (06) | DRG 331 ==
LOC: JP.MS 16:15
PROVIDERS: ADMIT Hospitalist; ATTEND Surgery
PROC: 0DTE0ZZ Resection of Large Intestine, Open Approach (ICD-10-PCS; principal; 2022-10-09)
PROC: 0DB80ZZ Excision of Small Intestine, Open Approach (ICD-10-PCS; 2022-10-09)
PROC: 0D1B0ZP Bypass Ileum to Rectum, Open Approach (ICD-10-PCS; 2022-10-09)
PROC: 3E0M05Z Introduction of Adhesion Barrier into Peritoneal Cavity, Open Approach (ICD-10-PCS; 2022-10-09)
PROC: 0WQF0ZZ Repair Abdominal Wall, Open Approach (ICD-10-PCS; 2022-10-11)
DX: K63.89 Other specified diseases of intestine (principal); K65.1 Peritoneal abscess; K52.9 Noninfective gastroenteritis and colitis, unspecified; E78.00 Pure hypercholesterolemia, unspecified; G47.30 Sleep apnea, unspecified; M10.9 Gout, unspecified; I48.91 Unspecified atrial fibrillation; I12.9 Hypertensive chronic kidney disease with stage 1 through stage 4 chronic kidney disease, or unspecified chronic kidney disease; E87.6 Hypokalemia; N18.9 Chronic kidney disease, unspecified; R63.0 Anorexia; Z88.8 Allergy status to other drugs, medicaments and biological substances; Z79.899 Other long term (current) drug therapy
CPT/HCPCS: 36415; 80053; 83735; 83880; 84100; 85025; 85027; 87070; 87075; 87077; 87186; 87205; 87493; 88307; 93010; 99222; 99231; 99232; A9270-GY; C9113; J0131; J0171; J0295; J0330; J0456; J0694; J1100; J1170; J1940; J2020; J2185; J2405; J2704; J2710; J2795; J3010; J3411; J3475; J3490; J7030; J7120; J7121; U0002